=== PATIENT | female | born 1960 | race Caucasian/White ===

== ENCOUNTER 2020-03-29 09:02 | Outpatient (CLI) | payer BC, SELFPAY ==
--- NOTE | ~2020-03-29 | XR_ITS ---
XR foot RT 2V DATE: 03/29/2020 09:40 INDICATION: Right foot pain TECHNIQUE: AP and standing lateral views COMPARISON: None FINDINGS: Plantar calcaneal enthesopathy. No associated erosive change or periostitis is evident. There is hallux valgus and bunion deformity. There is osteoarthritis at the first metatarsophalangeal joint. No erosive changes are noted. No fracture, dislocation, periosteal reaction or bone destructi on. IMPRESSION: Hallux valgus and bunion deformity Osteoarthritis at first metatarsophalangeal joint Plantar calcaneal enthesopathy Reviewed, dictated and finalized at location A.
== END 2020-03-29 09:03 | disposition home or self-care (01) ==
PROVIDERS: PCP Internal Medicine; Visit Provider Internal Medicine
DX: M79.671 Pain in right foot (principal); M20.11 Hallux valgus (acquired), right foot; M21.611 Bunion of right foot; M19.071 Primary osteoarthritis, right ankle and foot; M77.31 Calcaneal spur, right foot
CPT/HCPCS: 73620

== ENCOUNTER 2020-09-29 08:32 | Outpatient (CLI) | payer BC, SELFPAY ==
--- NOTE | ~2020-09-29 | MM_ITS ---
EXAMINATION: MM screening [facility] BI w lindsay HISTORY: Screening TECHNIQUE: Craniocaudal and mediolateral oblique 3-D tomosynthesis images were obtained and synthetic 2-D images were generated. CAD analysis was submitted and interpreted. COMPARISON: Comparison to multiple prior studies sequentially, with oldest reviewed study dated 11/2011. BREAST PARENCHYMAL COMPOSITION: There are scattered areas of fibroglandular density. FINDINGS: There is no evidence of suspicious mass, calcification, or architectural distortion to sugg est malignancy in either breast. There has been no suspicious interval change. IMPRESSION: 1. No mammographic evidence of malignancy. 2. Recommend routine screening mammography in one year. BI-RADS Category 1: Negative Reviewed, dictated and finalized at location A. REMOVER
== END 2020-09-29 08:33 | disposition home or self-care (01) ==
LOC: ANHIMG 08:36
PROVIDERS: PCP Internal Medicine; Visit Provider Internal Medicine
DX: Z12.31 Encounter for screening mammogram for malignant neoplasm of breast (principal)
CPT/HCPCS: 77063; 77067

== ENCOUNTER 2020-11-24 20:11 | Emergency (ER) | payer BC, SELFPAY ==
--- NOTE | ~2020-11-24 | XR_ITS ---
XR chest 1V portable DATE: 11/24/2020 20:55 INDICATION: Fever. Low oxygenation. Covid. TECHNIQUE: Portable AP chest on 11/24/2020 at 2059 hours COMPARISON: 03/17/2011 PA and lateral chest FINDINGS: Normal heart size. No hilar or mediastinal enlargement. There is mild patchy infiltrate and/or atelectasis in the lower lung zones, right greater than left. No pleural effusion or pulmonary vascular congestion or pneumothorax. IMPRESSION: Mild patchy infiltrate and/or atelectasis in the lower lung zones, right greater than lef t Reviewed, dictated and finalized at location A. ASOUND TECHNICIAN IMPRESSION: Mild patchy infiltrate and/or atelectasis in the lower lung zones, right greater than left
[2020-11-24 20:15] VITALS: BP 141/77; PULSE 92; RESP 20; TEMP 36.2; O2SAT 96
[2020-11-24 20:47] VITALS: RESP 14; O2SAT 95
--- NOTE | 2020-11-24 20:47 | PC.NURSE ---
Patient ambulated with pulse oximeter. O2 ranged from 94%-96% while ambulating.
--- NOTE | 2020-11-24 21:04 | ED.GENADULT ---
HPI - General Adult General Chief complaint: Unspecified Stated complaint: low o2 - COVID+ Time Seen by Provider: 11/24/20 20:23 Source: patient Mode of arrival: ambulatory Limitations: no limitations History of Present Illness HPI narrative: Patient presents with chief complaint of fevers, cough and feelings of shortness of breath after being diagnosed with Covid on ??. Patient states that her daughter gave her a pulse ox for her finger and she woke up and took it in the middle of the night and sat 89 so she felt that her oxygen levels were too low. Patient does not have any pain with inspiration, chest pain patient states that her fever was 100.3 degrees Fahrenheit so she has been taking Tylenol for it. Patient denies having asthma or COPD. Patient states she has been able to eat and drink normally. Related Data Home Medications Medication Instructions Recorded Confirmed estradiol 1 mg tablet 1 mg PO DAILY 10/05/19 09/25/20 omega-3 fatty acids 1,000 mg 2,000 mg PO BID cap 04/09/20 09/25/20 capsule pantoprazole 40 mg tablet,delayed 40 mg PO DAILY tablet 06/28/20 09/25/20 release Allergies Allergy/AdvReac Type Severity Reaction Status Date / Time venom-wasp Allergy Intermediate Swelling Verified 09/24/20 13:03 of Lip/Tongue/Throat Review of Systems Review of Systems: Narrative: CONSTITUTIONAL: Reports denies fever or sweats. EYES: Denies visual changes, redness, or discharge. ENT: Denies rhinorrhea, congestion, sore throat, or otalgia. CARDIOVASCULAR: Denies chest pain, palpitations, or edema. RESPIRATORY: Reports occasional cough and mild dyspnea. GASTROINTESTINAL: Denies abdominal pain, nausea, vomiting, or diarrhea. GENITOURINARY: Denies dysuria or hematuria. SKIN: Denies rash or itching. MUSCULOSKELETAL: Denies back pain, joint pain, or myalgia. NEUROLOGIC: Denies headache, numbness, dizziness, or weakness. PSYCHIATRIC: Denies anxiety or depression. 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 Right foot pain UTI (urinary tract infection) Vitamin D deficiency Wasp sting Family History Family History Mother Hypertension Family history of elevated blood lipids Patient's mother is in good health Family history of malignant melanoma Family history of osteoporosis Family history of chronic obstructive pulmonary disease Father Family history of heart disease in male family member before age 55 Family history of cardiovascular disease Other Acute myocardial infarction Social History Social History Smoking status: Never smoker Second hand tobacco smoke exposure: No Alcohol intake: current Exam Narrative: Exam Narrative: GENERAL: Well-appearing, well-nourished, and in no acute distress. HEAD: Normocephalic, atraumatic. EYES: PERRLA and EOMI. NECK: Supple. No adenopathy or masses. CHEST: Clear to auscultation. No respiratory distress. No wheezes rales or rhonchi. Patient is speaking fluently without any signs of hypoxia, tachypnea or distress. HEART: Regular rate and rhythm. EXTREMITIES: Normal range of motion. No edema. SKIN: Warm, dry, no rash. NEURO: No focal deficits. Alert and oriented x3. PSYCH: Normal mood and affect. Course Vital Signs Vital signs: Vital Signs Temperature 97.2 F L 11/24/20 20:15 Pulse Rate 92 11/24/20 20:15 Respiratory Rate 20 11/24/20 20:15 Blood Press
[2020-11-24 21:31] VITALS: BP 136/78; PULSE 82; RESP 16; TEMP 36.6; O2SAT 96
== END 2020-11-24 21:34 | disposition home or self-care (01) ==
PROVIDERS: Emergency Provider Emergency Medicine; PCP Internal Medicine
DX: U07.1 COVID-19 (principal); K21.9 Gastro-esophageal reflux disease without esophagitis; E78.5 Hyperlipidemia, unspecified; Z87.440 Personal history of urinary (tract) infections; E55.9 Vitamin D deficiency, unspecified; R91.8 Other nonspecific abnormal finding of lung field
CPT/HCPCS: 71045; 99283

== ENCOUNTER 2020-11-26 15:18 | Outpatient (CLI) | payer BC, SELFPAY ==
--- NOTE | ~2020-11-26 | CT_ITS ---
EXAMINATION: CTA chest PE protocol DATE: 11/26/2020 15:55 INDICATION: Dyspnea. TECHNIQUE: Computed tomography angiography (CTA) of the chest was performed with 100 mL Omnipaque-350 intravenous contrast timed to evaluate the pulmonary arteries. Coronal maximum intensity projection 3D-reconstructions were created by the technologist. Automated exposure control and iterative reconst ruction technique were employed. The dose-length product was 225.72 mGy-cm. COMPARISON: CT abdomen and pelvis 10/13/2019 FINDINGS: There are patchy airspace and groundglass opacities involving all lobes with a peripheral p redominance, worst in the lower lobes. No pleural effusion. The heart size is normal. No pericardial effusion. There is a small sliding hiatal hernia. There is no pulmonary embolus. There is mild bilate ral hilar lymphadenopathy. There is mild thoracic spondylosis. There is mild chronic anterior wedging of multiple lower thoracic vertebral bodies. IMPRESSION: 1. No pulmonary embolus. 2. Diffuse lung disease, consistent with COVID-19 pneumonia. 3. Small sliding hiatal hernia. 4. Mild bilateral hilar lymphadenopathy, likely reactive. Reviewed, dictated and finalized at location A. GENCY DEPARTMENT AIDE
[2020-11-26 15:49] LABS: Estimated Glomerular Filt Rate > 60
== END 2020-11-26 15:19 | disposition home or self-care (01) ==
PROVIDERS: PCP Internal Medicine; Visit Provider Internal Medicine
DX: R05 Cough (principal); R06.09 Other forms of dyspnea; R09.02 Hypoxemia; R50.81 Fever presenting with conditions classified elsewhere
CPT/HCPCS: 71275; Q9967

== ENCOUNTER 2020-11-30 09:19 | Outpatient (CLI) | payer BC, SELFPAY ==
--- NOTE | ~2020-11-30 | XR_ITS ---
XR chest 2V DATE: 11/30/2020 09:33 INDICATION: Cough, fever, dyspnea on exertion. Hypoxemia. TECHNIQUE: PA and lateral views COMPARISON: November 26, 2020 CT pulmonary scan 11/24/2020 portable AP chest FINDINGS: Stable patchy infiltrates predominating in the lower lung zones, not appreciably changed si nce 11/24/2011. Normal heart size. No hilar or mediastinal enlargement. No pleural effusion or pneumothorax. IMPRESSION: Relatively stable patchy bilateral pulmonary infiltrates since 11/24/2020 Reviewed, dictated and finalized at location A. UNTANT HELPER
== END 2020-11-30 09:20 | disposition home or self-care (01) ==
LOC: ANHIMG 09:24
PROVIDERS: PCP Internal Medicine; Visit Provider Internal Medicine
DX: R05 Cough (principal); R06.00 Dyspnea, unspecified; R09.02 Hypoxemia; R50.81 Fever presenting with conditions classified elsewhere; R91.8 Other nonspecific abnormal finding of lung field
CPT/HCPCS: 71046

== ENCOUNTER → 2020-12-11 15:24 | Outpatient (CLI) | payer BC, SELFPAY ==
--- NOTE | ~2020-12-11 | XR_ITS ---
EXAMINATION: XR hand RT min 3V DATE: 12/11/2020 15:34 INDICATION: Painful osteoarthritis at the third metacarpophalangeal joint. TECHNIQUE: Posteroanterior, oblique and lateral views of the right hand were obtained. COMPARISON: None. FINDINGS: Slight palmar subluxation at the second and third metacarpophalangeal joints. Alignment is otherwise normal. No fracture. Osteoarthritis characterized by nonuniform joint space narrowing and associated marginal osteophytes, moderate severity at the third metacarpophalangeal joint, mild to moderate at t he second metacarpophalangeal joint and mild at the first metacarpophalangeal and multiple predominan tly distal interphalangeal joints. Small lucencies within sclerotic margins at the heads of the secon d and third metacarpals and favor degenerative subchondral cyst over chronic erosions. Small loose os teochondral body at the right wrist joint along the ulnar margin of the distal radial articular surfa ce. Soft tissues are unremarkable. IMPRESSION: 1. Mild to moderate polyarticular osteoarthritis most prominent at the second and third metacarpophal angeal joints. There is a typical distribution can be seen in the setting of calcium pyrophosphate de position (CPPD) disease. Reviewed, dictated and finalized at location A. ING SUPERVISOR IMPRESSION: 1. Mild to moderate polyarticular osteoarthritis most prominent at the second a nd third metacarpophalangeal joints. There is a typical distribution can be see n in the setting of calcium pyrophosphate deposition (CPPD) disease.
== END ==
PROVIDERS: PCP Internal Medicine; Visit Provider Plastic Surgery
DX: M19.041 Primary osteoarthritis, right hand (principal)
CPT/HCPCS: 73130

== ENCOUNTER 2021-08-18 11:45 | Emergency (ER) | payer BC, SELFPAY ==
--- NOTE | 2021-08-18 11:54 | ED.SKABFB ---
HPI - Skin/Abscess/Foreign Bdy General Chief complaint: Skin/Abscess/Foreign Body Stated complaint: insect bite Time Seen by Provider: 08/18/21 12:00 Source: patient and RN notes reviewed Mode of arrival: ambulatory Limitations: no limitations History of Present Illness HPI narrative: 61-year-old female presents with concern for pain that started in the left shoulder, and is now radiating to the left mid to upper back area. Reports last night she had an episode of chest heaviness with shortness of breath. She denies any injury or trauma. Reports symptoms started with her shoulder after she lifted her daughter's heavy wheelchair. She reports an area on her upper back that is painful, itchy. Reports an ice pack temporary relieve the symptoms. She denies any current shortness of breath, chest pain. She is not had a shingles vaccine. MD complaint: insect bite/sting Related Data Home Medications Medication Instructions Recorded Confirmed estradiol 1 mg tablet 1 mg PO DAILY 10/05/19 08/18/21 folic acid 800 mcg tablet 0.8 mg PO DAILY 04/03/21 08/18/21 omega-3 fatty acids 1,000 mg 1,000 mg PO BID cap 04/03/21 08/18/21 capsule paroxetine HCl 10 mg PO DAILY 08/18/21 08/18/21 Allergies Allergy/AdvReac Type Severity Reaction Status Date / Time venom-wasp Allergy Intermediate Swelling Verified 08/18/21 12:25 of Lip/Tongue/Throat Review of Systems Review of Systems: CONSTITUTIONAL: Denies malaise, chills, sweats, or fever. CARDIOVASCULAR: Denies chest pain, palpitations, or edema. Reports an episode of chest heaviness last night RESPIRATORY: Denies cough or dyspnea. GASTROINTESTINAL: Denies abdominal pain, nausea SKIN: Denies rash. Reports left-sided upper back itching. MUSCULOSKELETAL: Reports left-sided upper back pain NEUROLOGIC: Denies numbness, weakness All systems reviewed & are unremarkable except as noted in HPI and below PMFSH Past Medical History Medical History (Updated 08/18/21 @ 12:34 by Hermelinda Santos NP) Abdominal pain BMI 24.0-24.9, adult BMI 25.0-25.9,adult Change in bowel habits Cough WRIGHT (dyspnea on exertion) Elevated fasting glucose Elevated homocysteine Encounter for preventive health examination Encounter for routine adult health examination without abnormal findings Encounter for screening mammogram for malignant neoplasm of breast Envenomation Fever Gastroenteritis GERD (gastroesophageal reflux disease) Hearing loss Hormone replacement therapy (HRT) Hyperlipidemia Loose stools 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 Personal history of COVID-19 Right foot pain Trigger finger of right hand UTI (urinary tract infection) Vitamin D deficiency Wasp sting Family History Family History Mother Hypertension Family history of elevated blood lipids Patient's mother is in good health Family history of malignant melanoma Family history of osteoporosis Family history of chronic obstructive pulmonary disease Father Family history of heart disease in male family member before age 55 Family history of cardiovascular disease Other Acute myocardial infarction Social History Social History Smoking status: Never smoker Second hand tobacco smoke exposure: No Alcohol intake: current Comments At time of signature, agree with nursing past medical, surgical, social and family history. There is no relevant family history pertinent to the presenting complaint Exam Narrative: GENERAL: Well-appearing, well-nourished, and in no acute distress. HEAD: Normocephalic, atraumatic. EYES: PERRLA, sclera clear ENT: Mucous membranes moist. NECK: Supple. CHEST: No respiratory distress. Clear to auscultation. No bony deformities, no asymmetry. Speaks in full sentences. HEART: Regular rate and rhythm. No murmur heard. Normal peripheral pulses. EXTREMITIES: Grossly normal range of motion. No
[2021-08-18 11:55] VITALS: BP 160/74; PULSE 88; RESP 16; TEMP 37; O2SAT 99
--- NOTE | 2021-08-18 12:32 | ECG_ITS ---
Measurements Intervals [place] Rate: 76 P: 44 MD: 135 QRS: 6 QRSD: 114 T: 10 QT: 389 QTc: 438 Interpretive Statements SINUS RHYTHM INCOMPLETE RIGHT BUNDLE BRANCH BLOCK BORDERLINE T WAVE ABNORMALITY- INFERIOR LEADS BASELINE ARTIFACT- I, II, AVR BORDERLINE ECG Electronically Signed On 08-18-2021 16:18:21 CDT by Ted Mak D.O.
== END 2021-08-18 12:40 | disposition home or self-care (01) ==
PROVIDERS: Emergency Provider Nurse Practitioner; PCP Internal Medicine
DX: M54.6 Pain in thoracic spine (principal); K21.9 Gastro-esophageal reflux disease without esophagitis; E78.5 Hyperlipidemia, unspecified; Z86.16 Personal history of COVID-19; E55.9 Vitamin D deficiency, unspecified
CPT/HCPCS: 93005; 99213; G0463

== ENCOUNTER 2021-11-18 09:15 | Outpatient (CLI) | payer BC, SELFPAY ==
--- NOTE | ~2021-11-18 | MM_ITS ---
EXAMINATION: MM screening [facility] BI w lindsay HISTORY: Screening mammogram TECHNIQUE: Craniocaudal and mediolateral oblique 3-D tomosynthesis images were obtained and synthetic 2-D images were generated. CAD analysis was submitted and interpreted. COMPARISON: 09/29/2020, 10/14/2018, 10/17/2016 BREAST PARENCHYMAL COMPOSITION: There are scattered areas of fibroglandular density. FINDINGS: There is no evidence of suspicious mass, calcification, or architectural distortion to sugg est malignancy in either breast. There has been no suspicious interval change. IMPRESSION: 1. No mammographic evidence of malignancy. 2. Recommend routine screening mammography in one year. BI-RADS Category 1: Negative Reviewed, dictated and finalized at location A. INSPECTOR
== END 2021-11-18 09:16 | disposition home or self-care (01) ==
LOC: ANHIMG 09:17
PROVIDERS: PCP Internal Medicine; Visit Provider Internal Medicine
DX: Z12.31 Encounter for screening mammogram for malignant neoplasm of breast (principal)
CPT/HCPCS: 77063; 77067

== ENCOUNTER 2021-12-23 11:37 | Outpatient (CLI) | payer BC, SELFPAY ==
--- NOTE | ~2021-12-23 | CT_ITS ---
EXAMINATION: CT brain wo/w con DATE: 12/23/2021 12:46 INDICATION: Dizziness and giddiness. TECHNIQUE: Computed tomography (CT) of the head was performed without and with 100 mL Omnipaque 350 i ntravenous contrast. The mA was adjusted according to patient size. Iterative reconstruction techniqu e was employed. The dose-length product was 1210.67 mGy-cm. COMPARISON: Head CT 01/24/2008 FINDINGS: There is no intracranial hemorrhage, acute infarction, or abnormal intracranial mass lesion . The ventricles are normal in size. The paranasal sinuses are clear. The orbits are normal. The mast oid air cells are normal. IMPRESSION: 1. Normal brain. Reviewed, dictated and finalized at location A. ARATOR IMPRESSION: 1. Normal brain.
[2021-12-23 12:01] LABS: Basophils Absolute Auto 0.1 K/mm3 (0.0-0.1); Eosinophils Absolute Auto 0.1 K/mm3 (0-0.3); Hematocrit 40.5 % (37.0-47.0); Immature Granulocyte Absolute 0.03 K/mm3 (0.00-0.031); Immature Granulocyte Percent A 0.4 % (0-0.5); Lymphocytes Absolute Auto 2.25 K/mm3 (0.9-3.2); Lymphocytes Percent Auto 30.7 % (18.3-44.2); Mean Corpuscular HGB Conc 34.6 g/dl (32-36); Mean Corpuscular Hemoglobin 33.3 pg (26-34); Mean Corpuscular Volume 96.4 fl (80-100); Mean Platelet Volume 10.6 fl (7.4-10.4); Monocytes Absolute Auto 0.4 K/mm3 (0.1-0.6); Monocytes Percent Auto 4.9 % (2.6-8.5); Neutrophils Absolute Auto 4.6 K/mm3 (1.3-6.7); Platelet Count Result 215 k/mm3 (150-375); Red Cell Distribution Width 11.9 % (11.5-14.5); White Blood Count 7.3 K/mm3 (4.5-10.0)
[2021-12-23 12:16] LABS: Anion Gap 8 mmol/L (8-16); Blood Urea Nitrogen 15 mg/dL (7-17); Calcium 9.3 mg/dL (8.4-10.2); Carbon Dioxide 26 mmol/L (22-30); Chloride 103 mmol/L (98-107); Estimated Glomerular Filt Rate > 60; Glucose 123 mg/dL (65-110); Potassium 4.2 mmol/L (3.4-5.0); Sodium 137 mmol/L (137-145)
== END 2021-12-23 11:38 | disposition home or self-care (01) ==
PROVIDERS: PCP Internal Medicine; Visit Provider Internal Medicine
DX: R42 Dizziness and giddiness (principal); Z79.899 Other long term (current) drug therapy
CPT/HCPCS: 36415; 70470; 80048; 85025; Q9967

== ENCOUNTER 2022-11-25 09:31 | Outpatient (CLI) | payer BC, SELFPAY ==
--- NOTE | ~2022-11-25 | MM_ITS ---
EXAMINATION: MM screening [facility] BI w lindsay HISTORY: Screening TECHNIQUE: Craniocaudal and mediolateral oblique 3-D tomosynthesis images were obtained and synthetic 2-D images were generated. CAD analysis was submitted and interpreted. COMPARISON: Comparison to multiple prior studies sequentially, with oldest reviewed study dated 09/25. BREAST PARENCHYMAL COMPOSITION: There are scattered areas of fibroglandular density. FINDINGS: There is no evidence of suspicious mass, calcification, or architectural distortion to sugg est malignancy in either breast. There has been no suspicious interval change. IMPRESSION: 1. No mammographic evidence of malignancy. 2. Recommend routine screening mammography in one year. BI-RADS Category 1: Negative Reviewed, dictated and finalized at location A. M SIGNALER
== END 2022-11-25 09:32 | disposition home or self-care (01) ==
PROVIDERS: PCP Internal Medicine; Visit Provider Physician Assistant
DX: Z12.31 Encounter for screening mammogram for malignant neoplasm of breast (principal)
CPT/HCPCS: 77063; 77067

== ENCOUNTER 2022-12-25 10:43 | Outpatient (CLI) | payer MEDICARE, BC, SELFPAY ==
--- NOTE | ~2022-12-25 | US_ITS ---
Abdominal Sonogram: Real-time sonographic imaging of the abdomen was performed. Clinical History: Abdominal pain Findings: The liver appears normal with no evidence of bile duct dilatation. There is a possible 2.5 cm probable hyperechoic mass near the gallbladder fossa. Main portal vein demonstrates normal direct ion of flow. The spleen is normal in size without evidence of focal lesion. The gallbladder is well distended, and appears normal with no evidence of gallstone or wall thickening. The common bile duct measures 3 mm. The visualized pancreas, aorta, and IVC are unremarkable. The right kidney measures 9.8 cm in length and the left kidney measures 11.4 cm. There is no hydronephrosis or renal calculus. Impression: Possible 2.5 cm hyperechoic hepatic mass near the gallbladder fossa, most suggestive of either jim ioma or focal fatty infiltration. Pre and postcontrast MR should be considered to further evaluate/co nfirm. Reviewed, dictated and finalized at [facility]. GER VALUATION Impression: Possible 2.5 cm hyperechoic hepatic mass near the gallbladder fossa, most sugge stive of either hemangioma or focal fatty infiltration. Pre and postcontrast MR should be considered to further evaluate/confirm.
== END 2022-12-25 10:44 | disposition home or self-care (01) ==
PROVIDERS: PCP Internal Medicine; Visit Provider Internal Medicine
DX: R10.9 Unspecified abdominal pain (principal); R93.5 Abnormal findings on diagnostic imaging of other abdominal regions, including retroperitoneum
CPT/HCPCS: 76700

== ENCOUNTER 2022-12-31 13:38 | Outpatient (CLI) | payer MEDICARE, SELFPAY ==
[2022-12-31 14:27] LABS: Appearance Urine Clear (Clear); Bacteria Urine None Seen /hpf; Bilirubin Urine Negative (Negative); Blood Urine Negative (Negative); Color Urine Yellow (Yellow); Glucose Urine UA Negative (Negative); Ketones Urine Negative (Negative); Leukocyte Esterase Ur 1+ LEU/UL (Negative); Need Manual Microscopic Reviewed; Nitrate Urine Negative (Negative); Non Pathogenic Casts 0-2; Protein Urine Negative (Negative); RBC Urine 0-2 /hpf (0-2); Specific Grav Ur 1.012 (1.001-1.035); Squamous Epithelial Cell Urine None seen /hpf (Few); Urobilinogen Urine 0.2 mg/dL (<2.0); WBC Urine 0-5 /hpf; pH Urine 6.5 (5.0-9.0)
[2022-12-31 14:29] LABS: Add Urine Microscopic? YES
== END 2022-12-31 13:39 | disposition home or self-care (01) ==
PROVIDERS: PCP Internal Medicine; Visit Provider Internal Medicine
DX: R39.9 Unspecified symptoms and signs involving the genitourinary system (principal)
CPT/HCPCS: 81001

== ENCOUNTER 2023-01-07 09:02 | Outpatient (CLI) | payer MEDICARE, SELFPAY ==
--- NOTE | ~2023-01-07 | MR_ITS ---
EXAMINATION: MR abdomen wo/w con DATE: 01/07/2023 09:54 INDICATION: 2.5 cm hyperechoic hepatic mass on prior ultrasound. TECHNIQUE: Magnetic resonance imaging (MRI) of the abdomen was performed without and with 15 mL Multi brad intravenous contrast. Sequences included coronal T2-weighted SS-FSE, coronal and axial FS 2D-F IESTA, axial STIR FSE, axial T2-weighted SS-FSE, axial T2-weighted FS SS-FSE, axial diffusion-weighte d SE, axial dual-echo T1-weighted FSPGR, and axial and coronal T1-weighted LAVA. Postcontrast axial T 1-weighted LAVA images were obtained in a time course. Postcontrast coronal T1-weighted LAVA images w ere obtained. COMPARISON: Ultrasound dated 12/25/[address] abdomen and pelvis dated 10/13/1990 FINDINGS: Heart size is normal. No pericardial or pleural effusion. Liver is normal with no correlate for the s mall region of increased echogenicity seen in the right hepatic lobe on prior. Gallbladder, spleen, p ancreas, bilateral adrenal glands and kidneys are normal. Visualized bowels are unremarkable. No path ologically enlarged abdominal lymphadenopathy. Normal bone marrow signal throughout. IMPRESSION: 1. Normal liver. No correlate for the hyperechoic lesion identified on prior ultrasound. Reviewed, dictated and finalized at location B. IMPRESSION: 1. Normal liver. No correlate for the hyperechoic lesion identified on prior ul trasound.
== END 2023-01-07 09:03 | disposition home or self-care (01) ==
PROVIDERS: PCP Internal Medicine; Visit Provider Internal Medicine
DX: R16.0 Hepatomegaly, not elsewhere classified (principal)
CPT/HCPCS: 74183; A9577

== ENCOUNTER 2023-04-13 14:46 | Outpatient (CLI) | payer MEDICARE, SELFPAY ==
--- NOTE | ~2023-04-13 | DEXA_ITS ---
Bone Density Report Name: CARMEN SMITH Age: 63 Sex: Female Ethnicity: White Date of : 1960 Indication: postmenopausal; screening for osteoporosis; Referring Provider: ALETA NEAL Study: Bone densitometry was performed. Exam Date: April 13, 2023 Accession number: [id number] Bone Density: Region BMD T-score Z-score Classification AP Spine(L1-L4) 1.224 1.6 3.4 Normal Femoral Neck (Left) 0.837 -0.1 1.4 Normal Total Hip (Left) 1.030 0.7 2.0 Normal Femoral Neck (Right) 0.836 -0.1 1.4 Normal Total Hip (Right) 1.072 1.1 2.3 Normal Total Hip Mean 1.051 0.9 2.2 Normal World Health Organization criteria for BMD impression classify patients as: Normal (T-score at or above -1.0), Osteopenia (T-score between -1.0 and -2.5), or Osteoporosis (T-score at or below -2.5). 10-year Fracture Risk: FRAX not reported because: All T-scores for Spine Total, Hip Total, Femoral Neck at or above -1.0 Clinical Information Provided by Patient: Has used the following medications: Calcium Patient maximum height was 63 Menopause Age: 53 Drinks caffeinated beverages Onset of menses at age 17 Number of children 3 Impression: The patient has normal bone mass. Discussion: BONE DENSITY IS ABOVE THE MINIMUM DESIRABLE LEVEL AT ALL SKELETAL SITES TESTED. This patient?s bone mineral density is above the minimum desirable level (T-score -1.0 or better) at all sites measured. The patient should follow a healthful lifestyle (good nutrition with adequate calcium and vitamin D, and appropriate weight-bearing exercise). Follow-Up: Consider repeating this study in 5 years or sooner if there is some new clinical indication. Reported by: ASHANTI on 04/13/2023 3:07:00 PM. Reviewed, dictated and finalized at location A. [facility]
== END 2023-04-13 14:47 | disposition home or self-care (01) ==
LOC: ANHIMG 14:49
PROVIDERS: PCP Internal Medicine; Visit Provider Internal Medicine
DX: Z78.0 Asymptomatic menopausal state (principal)
CPT/HCPCS: 77080

== ENCOUNTER 2023-08-18 14:51 | Outpatient (CLI) | payer MEDICARE, SELFPAY ==
--- NOTE | ~2023-08-18 | CT_ITS ---
EXAMINATION: CT abdomen pelvis w con DATE: 08/18/2023 15:28 INDICATION: Unspecified abdominal pain. Nausea. TECHNIQUE: Computed tomography (CT) of the abdomen and pelvis was performed with 100 mL Omnipaque 350 intravenous contrast. Automated exposure control and iterative reconstruction technique were employe d. The dose-length product was 306.90 mGy-cm. COMPARISON: CT abdomen and pelvis 10/13/2019 FINDINGS: The visualized portions of the lung bases demonstrate mild atelectasis. No pleural effusion . The heart size is normal. No pericardial effusion. There is a small sliding hiatal hernia. The live r, gallbladder, spleen, pancreas, adrenal glands, and kidneys are normal. There are no dilated loops of bowel. The appendix is normal. There are no pathologically enlarged lymph nodes. There is no free intraperitoneal fluid. There is moderate lumbar spondylosis. There is mild chronic anterior wedging o f multiple vertebral bodies. IMPRESSION: 1. Small sliding hiatal hernia. Reviewed, dictated and finalized at location E.
[2023-08-18 15:23] LABS: Estimated Glomerular Filt Rate > 60
== END 2023-08-18 14:52 | disposition home or self-care (01) ==
PROVIDERS: PCP Internal Medicine; Visit Provider Internal Medicine
DX: K44.9 Diaphragmatic hernia without obstruction or gangrene (principal)
CPT/HCPCS: 74177; Q9967

== ENCOUNTER 2023-12-28 17:10 | Outpatient (CLI) | payer MEDICARE, SELFPAY ==
--- NOTE | ~2023-12-28 | XR_ITS ---
EXAMINATION: XR chest 2V DATE: 12/28/2023 17:11 INDICATION: Unspecified cough TECHNIQUE: PA and lateral views of the chest are obtained. COMPARISON: 11/30/2020 FINDINGS: The lungs are free of acute opacities. No pleural effusion or pneumothorax. The cardiomedia stinal silhouette is normal. There is mild thoracic spondylosis. IMPRESSION: 1. No acute cardiopulmonary abnormality. Reviewed, dictated and finalized at location L. SPECIALIST
[2023-12-28 17:26] LABS: Basophils Percent Auto 0.5 % (0.2-1.2); Eosinophils Percent Auto 0.1 % (0-4.4); Hematocrit 38.2 % (37.0-47.0); Hemoglobin 12.8 g/dL (12.0-15.0); Immature Granulocyte Absolute 0.02 K/mm3 (0.00-0.031); Immature Granulocyte Percent A 0.3 % (0-0.5); Lymphocytes Absolute Auto 3.05 K/mm3 (0.9-3.2); Lymphocytes Percent Auto 41.8 % (18.3-44.2); Mean Corpuscular HGB Conc 33.5 g/dl (32-36); Mean Corpuscular Hemoglobin 32.2 pg (26-34); Mean Platelet Volume 10.1 fl (7.4-10.4); Monocytes Absolute Auto 0.6 K/mm3 (0.1-0.6); Monocytes Percent Auto 8.6 % (2.6-8.5); Neutrophils Absolute Auto 3.5 K/mm3 (1.3-6.7); Neutrophils Percent Auto 48.7 % (45.5-73.1); Platelet Count Result 191 k/mm3 (150-375); Red Blood Count 3.98 M/mm3 (4.2-5.4); Red Cell Distribution Width 11.9 % (11.5-14.5); White Blood Count 7.3 K/mm3 (4.5-10.0)
== END 2023-12-28 17:11 | disposition home or self-care (01) ==
PROVIDERS: PCP Internal Medicine; Visit Provider Internal Medicine
DX: E78.2 Mixed hyperlipidemia (principal); R05.9 Cough, unspecified
CPT/HCPCS: 36415; 71046; 85025

== ENCOUNTER 2024-12-21 13:22 | Outpatient (CLI) | payer MEDICARE, SELFPAY ==
--- NOTE | ~2024-12-21 | MM_ITS ---
EXAMINATION: MM screening nicolle BI w lindsay HISTORY: Screening mammogram TECHNIQUE: Craniocaudal and mediolateral oblique 3-D tomosynthesis images were obtained and synthetic 2-D images were generated. CAD analysis was submitted and interpreted. COMPARISON: 11/25/2022, 11/18/2021, 09/29/2020 BREAST PARENCHYMAL COMPOSITION:Not Dense. The breasts are almost entirely fatty FINDINGS: No suspicious mass, calcification, or architectural distortion are identified in either franki ast to suggest malignancy. There has been no suspicious interval change. IMPRESSION: No mammographic evidence of malignancy. Recommend routine screening mammography in one year. BI-RADS Category 1: Negative Reviewed, dictated and finalized at location . 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
--- OUTSIDE RECORDS SUMMARY | 2024-12-21 15:09 | XMS_ITS | Clinical Summary ---
Author Organization 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 Gender Identity Not on file Sexual Orientation Not on file Plan of Treatment Health Maintenance Due Date Last Done Comments DEXA Bone Density 1960 Hepatitis C Virus (HCV) Screening 1960 TdaP Immunization 1960 Colonoscopy 2003 Colorectal Cancer Screening 2003 Cologuard 01/05/2008 Immunochemical Fecal Occult Blood 01/05/2008 Mammogram 01/05/2008 Pneumococcal Immunization (5 0+ years) (1 of 1 - PCV) 01/05/2008 Zoster Immunization (1 of 2) 01/05/2008 Influenza Immunization (#1) 2024 SARS-COV-2 Immunization ( season) 2024 Respiratory Syncytial Virus (RSV) Immunization (Adult) (1 - 1-dose 75+ series) 2033 Hepatitis B Immunization Aged Out No longer eligible based on patient's age to complete this topic Meningococcal Immunization (ACWY) Aged Out No longer eligible based on patient's age to complete this topic Rotavirus Immunization Aged Out No lo nger eligible based on patient's age to complete this topic
--- OUTSIDE RECORDS SUMMARY | 2024-12-21 15:09 | XMS_ITS | Data Portability ---
Author Organization [facility] Address [address] [place] [address] Care Team Providers Care Exercise Instruct Name Role Phone EYAD CARBAJAL Registered Phlebotomist Part Time [phone] Assessment No assessment recorded. Plan of Treatment Reminders Order Date Submit Date Provider Last Modified By Organization Details Last Modified Time Details Appointments None recorded. Lab pap, IG + reflex HPV 2021 022 DBA_PATCH_2 [id number] [facility], [address], [place], [address], 3 03:37:09 bacterial vaginosis score, ASHLI+probe , vaginal fluid (OBS) 2021 022 DBA_PATCH_2 [id number] [facility], [address], [place], [address], 3 03:37:09 urinalysi s, dipstick 2021 022 [email or web address] 1 In-Office Order, Internal Use Only DO Not Attach Compendium DO Not Attach Compendium, Do Not Delete/merge, [id number] 2 11:34:19 pap, IG + HPV, cervical 2015 016 DBA_PATCH_2 [id number] [facility], [address], [place], [address], 6 04:33:05 urinalysi s, dipstick 2015 016 DBA_PATCH_2 [id number] In-Office Order, Internal Use Only DO Not Attach Compendium DO Not Attach Compendium, Do Not Delete/merge, [id number] 6 04:33:17 test, urine 2015 016 DBA_PATCH_2 [id number] In-Office Order, Internal Use Only DO Not Attach Compendium DO Not Attach Compendium, Do Not Delete/merge, [id number] 6 04:33:10 test, urine 2014 015 [email or web address] In-Office Order, Internal Use Only DO Not Attach Compendium DO Not Attach Compendium, Do Not Delete/merge, [id number] 5 12:26:45 urinalysi s, dipstick 2014 015 [email or web address] In-Office Order, Internal Use Only DO Not Attach Compendium DO Not Attach Compendium, Do Not Delete/merge, [id number] 5 12:26:46 culture, vaginal/r ectal, streptoco ccus group B 2014 015 G[address]NESIS GRECO, [address], [place], [address], 5 06:06:09 pap, IG + HPV, cervical 2014 015 G[address]NESIS GRECO, [address], [place], [address], 5 09:37:15 bacterial vaginosis + vaginitis panel, vaginal 2014 015 GÉNESIS GRECO, [address], [place], [address], 5 06:06:08 HSV (1+2) DNA, qual, PCR, unspecifi ed specimen 2014 015 GÉNESIS GRECO, [address], [place], [address], 5 06:06:09 Referral None recorded. Procedures None recorded. Surgeries None recorded. Imaging MAMMO, screening , bilateral 2021 022 [facility], [address], [place], [address], 2 10:25:52 MAMMO, screening , bilateral 2017 018 [facility], [address], [place], [address], 8 17:12:15 MAMMO, screening , bilateral - 3D view due to implants and size of breasts 2015 016 [facility], [address], [place], [address], 6 09:31:09 bone density 2015 016 [facility], [address], [place], [address], 6 17:39:47 mammogram , screening 2014 015 [facility], [address], [place], [address], 5 16:09:21 Medication Orders paroxetin e 10 mg tablet 2017 018 [facility]FACE [facility] [facility] #[id number], [address] [facility], [place], [place], [id number], 8 15:26:21 multivita min tablet 2017 018 [facility], [address], [place], [id number], 2 11:17:01 Calcium with Vitamin D 600 mg-10 mcg (400 unit) tablet [address] [facility], [address], [place], [id number], 8 15:26:23 paroxetin e 10 mg tablet 2015 016 [facility] #[id number], [address], [place], [id number], 8 15:16:36 Brisdelle 7.5 mg capsule 2015 016 [facility] #19204, [address], [place], [id number], 8 15:16:31 Brisdelle 7.5 mg capsule 2015 016 [facility] #58245, [address], [place], [id number], 8 15:16:31 calcium 600 mg (as carbonate )-vitamin D3 20 mcg (800 unit) tablet 2015 016 [facility]95, [address], [place], [id number], 2 11:18:47 multivita min tablet 2015 016 [facility]647, [address], [place], [id number], 2 11:17:01 Patient TargetsNo targets recorded. Patient Instructions Encounter Date Encounter Id Patient Instructions Last Modified By Organization Details Last Modified Time 09/05/2015 [id number] learning about breast cancer screening [facility] Not available 09/05/2015 12:26:46 10/01/2016 [id number] mammogram: about this test demetrius Not available 10/01/2016 13:46:44 10/12/2018 [id number] mammogram: about this test demetrius Not available 10/12/2018 15:26:16 mammogram screening patient instructions demetrius Not available 10/12/2018 15:26:16 12/25/2021 [id number] well visit, women 50 to 65: care instructions [email or web address] Not available 12/25/2021 11:31:15 learning about breast cancer screening [email or web address] Not available 12/25/2021 11:31:16 Reason for Referral None Reported. Results Created Date Observation Date Name Description Value Unit Range Abnormal Flag Note LastModifiedBy Organization Detail LastModifiedTime 10/01/20 16 10/01/2016 pregn madison test, urine HCG negati ve Not Available In-Office Order Internal Use Only DO Not Attach Compendium DO Not Attach Compendium, Do Not Delete/merge, [id number] 10/01/2016 12:46:09 10/01/20 16 10/01/2016 urina lysis , dipst ick Leukocytes Trace Not Available In-Offi ce Order Internal Use Only DO Not Attach Compendium DO Not Attach Compendium, Do Not Delete/merge, [id number] 10/01/2016 12:45:37 10/01/20 16 10/01/2016 urina lysis , dipst ick Nitrite negati ve Not Available In-Office Order Internal Use Only DO Not Attach Compendium DO Not Attach Compendium, Do Not Delete/merge, [id number] 10/01/2016 12:45:37 10/01/20 16 10/01/2016 urina lysis , dipst ick Urobilinogen .2 Not Available In-Of fice Order Internal Use Only DO Not Attach Compendium DO Not Attach Compendium, Do Not Delete/merge, [id number] 10/01/2016 12:45:37 10/01/20 16 10/01/2016 urina lysis , dipst ick Protein Negati ve Not Available In-Office Order Internal Use Only DO Not Attach Compendium DO Not Attach Compendium, Do Not Delete/merge, [id number] 10/01/2016 12:45:37 10/01/20 16 10/01/2016 urina lysis , dipst ick pH 6.0 Not Available In-Office Order Internal Use Only DO Not Attach Compendium DO Not Attach Compendium, Do Not Delete/merge, [id number] 10/01/2016 12:45:37 10/01/20 16 10/01/2016 urina lysis , dipst ick Blood Negati ve Not Available In-Office Order Internal Use Only DO Not Attach Compendium DO Not Attach Compendium, Do Not Delete/merge, [id number] 10/01/2016 12:45:37 10/01/20 16 10/01/2016 urina lysis , dipst ick Specific [place] 1.015 Not Available In-Off ice Order Internal Use Only DO Not Attach Compendium DO Not Attach Compendium, Do Not Delete/merge, [id number] 10/01/2016 12:45:37 10/01/20 16 10/01/2016 urina lysis , dipst ick Ketone Negati ve Not Available In-Office Order Internal Use Only DO Not Attach Compendium DO Not Attach Compendium, Do Not Delete/merge, [id number] 10/01/2016 12:45:37 10/01/20 16 10/01/2016 urina lysis , dipst ick Bilirubin Negati ve Not Available In-Office Order Internal Use Only DO Not Attach Compendium DO Not Attach Compendium, Do Not Delete/merge, [id number] 10/01/2016 12:45:37 10/01/20 16 10/01/2016 urina lysis , dipst ick Glucose Negati ve Not Available In-Office Order Internal Use Only DO Not Attach Compendium DO Not Attach Compendium, Do Not Delete/merge, [id number] 10/01/2016 12:45:37 09/05/20 15 09/05/2015 urina lysis , dipst ick Leukocytes Modera te Not Available In-Office Order Internal Use Only DO Not Attach Compendium DO Not Attach Compendium, Do Not Delete/merge, [id number] 09/05/2015 11:57:35 09/05/20 15 09/05/2015 urina lysis , dipst ick Nitrite negati ve Not Available In-Office Order Internal Use Only DO Not Attach Compendium DO Not Attach Compendium, Do Not Delete/merge, [id number] 09/05/2015 11:57:35 09/05/20 15 09/05/2015 urina lysis , dipst ick Urobilinogen .2 Not Available In-Of fice Order Internal Use Only DO Not Attach Compendium DO Not Attach Compendium, Do Not Delete/merge, 09/05/2015 11:57:35 09/05/20 15 09/05/2015 urina lysis , dipst ick Protein Negati ve Not Available In-Office Order Internal Use Only DO Not Attach Compendium DO Not Attach Compendium, Do Not Delete/merge, 09/05/2015 11:57:35 09/05/20 15 09/05/2015 urina lysis , dipst ick pH 6.0 Not Available In-Office Order Internal Use Only DO Not Attach Compendium DO Not Attach Compendium, Do Not Delete/merge, 09/05/2015 11:57:35 09/05/20 15 09/05/2015 urina lysis , dipst ick Blood Non-He molyze d: Trace Not Available In-Office Order Internal Use Only DO Not Attach Compendium DO Not Attach Compendium, Do Not Delete/merge, 09/05/2015 11:57:35 09/05/20 15 09/05/2015 urina lysis , dipst ick Specific [place] 1.010 Not Available In-Off ice Order Internal Use Only DO Not Attach Compendium DO Not Attach Compendium, Do Not Delete/merge, 09/05/2015 11:57:35 09/05/20 15 09/05/2015 urina lysis , dipst ick Ketone Negati ve Not Available In-Office Order Internal Use Only DO Not Attach Compendium DO Not Attach Compendium, Do Not Delete/merge, 09/05/2015 11:57:35 09/05/20 15 09/05/2015 urina lysis , dipst ick Bilirubin Negati ve Not Available In-Office Order Internal Use Only DO Not Attach Compendium DO Not Attach Compendium, Do Not Delete/merge, 09/05/2015 11:57:35 09/05/20 15 09/05/2015 urina lysis , dipst ick Glucose Negati ve Not Available In-Office Order Internal Use Only DO Not Attach Compendium DO Not Attach Compendium, Do Not Delete/merge, [id number] 09/05/2015 11:57:35 09/05/20 15 09/05/2015 pregn madison test, urine HCG negati ve Not Available In-Office Order Internal Use Only DO Not Attach Compendium DO Not Attach Compendium, Do Not Delete/merge, [id number] 09/05/2015 11:57:35 09/05/20 15 09/07/2015 bacte rial vagin osis + vagin itis panel , vagin al shira albicans, ASHLI NEGATI VE negati ve Not Available [facility] ([facility]) [address] [place], [address], 09/09/2015 06:06:08 09/05/20 15 09/07/2015 bacte rial vagin osis + vagin itis panel , vagin al shira glabrata, ASHLI NEGATI VE negati ve THIS TEST WAS DEVEL OPED AND ITS PERFO RMANC E MIRA CTERI STICS DETER MINED BY [facility]. IT HAS NOT BEEN CLEAR ED OR APPRO HARRIS BY THE FOOD AND DRUG ADMIN ISTRA TION. THE FDA HAS DETER MINED THAT SUCH CLEAR ANCE OR APPRO TRE IS NOT NECES BRITNI. Not Available [facility] ([facility]) [address] [facility], [place], [address], 09/09/2015 06:06:08 09/05/20 15 09/07/2015 bacte rial vagin osis + vagin itis panel , vagin al trich vag by ASHLI NEGATI VE negati ve Not Available [facility] ([facility]) [address] [place], [address], 09/09/2015 06:06:08 09/05/2009/08/2015 bacte rial vagin osis + vagin itis panel , vagin al chlamydia trachomatis, ASHLI NEGATI VE negati ve Not Available [facility] ([facility]) [address] [place], [address], 09/09/2015 06:06:08 09/05/20 15 09/08/2015 bacte rial vagin osis + vagin itis panel , vagin al neisseria gonorrhoeae, ASHLI NEGATI VE negati ve Not Available [facility] ([facility]) [address] [facility], [place], [address], 09/09/2015 06:06:08 09/05/20 15 09/09/2015 bacte rial vagin osis + vagin itis panel , vagin al atopobium vaginae LOW - 0 score Not Available [facility] ([facility]) [address] [facility], [place], [address], 09/09/2015 06:06:08 09/05/20 15 09/09/2015 bacte rial vagin osis + vagin itis panel , vagin al bvab 2 LOW - 0 score Not Available [facility] ([facility]) [address] [place], [address], 09/09/2015 06:06:08 09/05/20 15 09/09/2015 bacte rial vagin osis + vagin itis panel , vagin al megasphaera 1 LOW - 0 score CALCU LATE TOTAL SCORE BY BLAYEN Young THE 3 INDIV IDUAL BACTE RIAL VAGIN OSIS (BV) MARKE R SCORE S TOGET HER. TOTAL SCORE IS INTER PRETE D FOLLO WS: TOTAL SCORE 0-1: INDIC ATES THE ABSEN CE OF BV. TOTAL SCORE 2: INDET ERMIN ATE FOR BV. ADDIT IONAL CLINI GONZALO DATA SHOUL D BE EVALU ATED TO ESTAB KEDAR A DIAGN OSIS. TOTAL SCORE 3-6: INDIC ATES THE PRESE NCE OF BV. THIS TEST WAS DEVEL OPED AND ITS PERFO RMANC E MIRA CTERI STICS DETER MINED BY [facility]. IT HAS NOT BEEN CLEAR ED OR APPRO HARRIS BY THE FOOD AND DRUG ADMIN ISTRA TION. THE FDA HAS DETER MINED THAT SUCH CLEAR ANCE OR APPRO TRE IS NOT NECES BRITNI. Not Available [facility] ([facility]) [address] [facility], [place], [address], 09/09/2015 06:06:08 09/05/20 15 09/07/2015 HSV (1+2) DNA, qual, PCR, unspe cifie d speci men hsv 1 ASHLI NEGATI VE negati ve Not Available [facility] ([facility]) [address] [facility], [place], [address], 09/09/2015 06:06:09 09/05/20 15 09/07/2015 HSV (1+2) DNA, qual, PCR, unspe cifie d speci men hsv 2 ASHLI NEGATI VE negati ve Not Available [facility] ([facility]) [address] [facility], [place], [address], 09/09/2015 06:06:09 09/05/20 15 09/07/2015 cultu re, vagin al/re ctal, strep tococ cus group B strep gp B ASHLI NEGATI VE negati ve PENIC ILLIN G, AMPIC ILLIN , OR CEFAZ IVETTE ARE INDIC ATED FOR INTRA PARTU M PROPH YLAXI S OF PERIN ATAL GROUP B STREP (GBS) COLON IZATI ON. REFLE X SUSCE PTIBI LITY TESTI NG SHOUL D BE PERFO RMED PRIOR TO USE OF CLIND AMYCI N ONLY ON GBS ISOLA MAIRA FROM PENIC ILLIN -HALEY RGIC WOMEN WHO ARE CONSI DERED A HIGH RISK FOR ANAPH YLAXI S. TREAT MENT WITH VANCO MYCIN WITHO UT ADDIT IONAL TESTI NG IS WARRA NTED IF RESIS TANCE TO CLIND AMYCI N IS NOTED . (CDC GUIDE LINES , MMWR, 2009) Not Available [facility] ([facility]) [address] [facility], [place], [address], 09/09/2015 06:06:09 09/05/20 15 09/07/2015 pap, IG + HPV, cervi gonzalo HPV aptima NEGATI VE negati ve THIS TEST DETEC TS FOURT EEN HIGH- RISK HPV TYPES (16/1 8/31/ 33/35 /39/4 5/ 51/52 /56/5 8/59/ 66/68 ) WITHO UT DIFFE RENTI ATION . Not Available [facility] ([facility]) [address] [facility], [place], [address], 09/10/2015 09:37:15 09/05/20 15 09/10/2015 pap, IG + HPV, cervi gonzalo diagnosis: COMMEN T NEGAT STACI FOR INTRA EPITH ELIAL LESIO N AND MALIG JEANINE . CELLU LAR ELLER ES ASSOC IATED WITH INFLA MMATI ON ARE PRESE NT. Not Available [facility] ([facility]) [address] [facility], [place], [address], 09/10/2015 09:37:15 09/05/2009/10/2015 pap, IG + HPV, cervi gonzalo specimen adequacy: COMMEN T SATIS FACTO RY FOR EVALU ATION . ENDOC ERVIC AL AND/O R SQUAM OUS METAP LASTI C CELLS (ENDO CERVI GONZALO COMPO NENT) ARE PRESE NT. Not Available [facility] ([facility]) [address] [facility], [place], [address], 09/10/2015 09:37:15 09/05/20 15 09/10/2015 pap, IG + HPV, cervi gonzalo performed by: MELVIN GALICIA, CYTOT ECHNO LOGIS T (ASCP ) Not Available [facility] ([facility]) [address] [facility], [place], [address], 09/10/2015 09:37:15 09/05/20 15 09/10/2015 pap, IG + HPV, cervi gonzalo QC reviewed by: MIAN ROMERO Y CYTOT ECHNO LOGIS T (ASCP ) Not Available [facility] ([facility]) [address] [place], [address], 09/10/2015 09:37:15 09/05/20 15 09/10/2015 pap, IG + HPV, cervi gonzalo . . Not Available [facility] ([facility]) [address] [place], [address], 09/10/2015 09:37:15 09/05/20 15 09/10/2015 pap, IG + HPV, cervi gonzalo note: COMMOWEN T THE PAP SMEAR IS A SCREE ANGLE TEST DESIG CHRIS TO AID IN THE DETEC TION OF BRIT LIGNA NT AND MALIG NANT CONDI TIONS OF THE UTERI NE CERVI X. IT IS NOT A DIAGN OSTIC PROCE DURE AND SHOUL D NOT BE USED THE SOLE MEANS OF DETEC TING CERVI GONZALO CANCE R. BOTH FALSE -POSI TIVE AND FALSE -NEGA TIVE REPOR TS DO OCCUR . Not Available [facility] ([facility]) [address] [place], [address], 09/10/2015 09:37:15 09/05/20 15 09/10/2015 pap, IG + HPV, cervi gonzalo test methodology: MELVIN T THIS LIQUI D BASED THINP REP(R ) PAP TEST WAS SCREE CHRIS WITH THE USE OF AN IMAGE GUIDE D SYSTE M. Not Available [facility] ([facility]) [address] [place], [address], 09/10/2015 09:37:15 12/26/19 22 12/26/2021 IGP,A PTIMA HPV,A GE GDLN age gdln acog testing 30-65 Not Available [facility] ([facility]) [address] [place], [address], 12/30/2021 11:36:49 12/26/19 22 12/27/2021 IGP,A PTIMA HPV,A GE GDLN HPV aptima Negati ve negati ve This nucle ic acid ampli ficat ion test detec ts fourt een high- risk HPV types (16,1 8,31, 33,35 ,39,4 5,51, 52,56 ,58,5 9,66, 68) witho ut diffe renti ation . Not Available [facility] ([facility]) [address] [place], [address], 12/30/2021 11:36:49 12/26/19 22 12/30/2021 IGP,A PTIMA HPV,A GE GDLN diagnosis: Melvin SMALL FOR INTRA EPITH ELIAL LESCANDIDA N OR MARJORIE SOLORZANO . Not Available [facility] ([facility]) [address] [place], [address], 12/30/2021 11:36:49 12/26/19 22 12/30/2021 IGP,A PTIMA HPV,A GE GDLN specimen adequacy: Melvin watson Satis facto ry for evalu ation . Endoc ervic al and/o r squam ous metap lasti c cells (endo cervi gonzalo compo nent) are prese nt. Not Available [facility] ([facility]) [address] [place], [address], 12/30/2021 11:36:49 12/26/19 22 12/30/2021 IGP,A PTIMA HPV,A GE GDLN clinician provided ICD10: Melvin watson Z01.4 19 Not Available [facility] ([facility]) [address] [place], [address], 12/30/2021 11:36:49 12/26/19 22 12/30/2021 IGP,A PTIMA HPV,A GE GDLN performed by: Melvin Blair , Cytot eloy watson (ASCP ) Not Available [facility] ([facility]) [address] [place], [address], 12/30/2021 11:36:49 12/26/19 22 12/30/2021 IGP,A PTIMA HPV,A GE GDLN . . Not Available [facility] ([facility]) [address] [place], [address], 12/30/2021 11:36:49 12/26/19 22 12/30/2021 IGP,A PTIMA HPV,A GE GDLN note: Commen t The Pap smear is a scree angle test desig chris to aid in the detec tion of brit ligna nt and malig nant condi tions of the uteri ne cervi x. It is not a diagn ostic proce dure and shoul d not be used as the sole means of detec ting cervi gonzalo cance r. Both false -posi tive and false -nega tive repor ts do occur . Not Available [facility] ([facility]) [address] [place], [address], 12/30/2021 11:36:49 12/26/19 22 12/30/2021 IGP,A PTIMA HPV,A GE GDLN test methodology: Commowen t This liqui d based ThinP rep(R ) pap test was scree chris with the use of an image guide iraj moyer. Not Available [facility] ([facility]) [address] [place], [address], 12/30/2021 11:36:49 12/26/19 22 12/29/2021 NUSWA B VG+, HSV atopobium vaginae Low - 0 score Not Available [facility] ([facility]) [address] [place], [address], 12/31/2021 06:13:36 12/26/19 22 12/29/2021 NUSWA B VG+, HSV bvab 2 Low - 0 score Not Available [facility] ([facility]) [address] [place], [address], 12/31/2021 06:13:36 12/26/19 22 12/29/2021 NUSWA B VG+, HSV megasphaera 1 Low - 0 score Calcu late total score by blayne young the 3 indiv idual bacte rial vagin osis (BV) marke r score s toget her. Total score is inter prete d as follo ws: Total score 0-1: Indic ates the absen ce of BV. Total score 2: Indet ermin ate for BV. Addit ional clini gonzalo data shoul d be evalu ated to estab kedar a diagn osis. Total score 3-6: Indic ates the prese nce of BV. This test was devel rhiannoned and its perfo rmanc e mira cteri stics deter mined by [facility]. It has not been clear ed or appro harris by the Food and Drug Admin istra tion. Not Available [facility] ([facility]) [address] [place], [address], 12/31/2021 06:13:36 12/26/19 22 12/29/2021 NUSWA B VG+, HSV shira albicans, ASHLI Negati ve negati ve Not Available [facility] ([facility]) [address] [place], [address], 12/31/2021 06:13:36 12/26/19 22 12/29/2021 NUSWA B VG+, HSV shira glabrata, ASHLI Negati ve negati ve Not Available [facility] ([facility]) [address] [place], [address], 12/31/2021 06:13:36 12/26/19 22 12/31/2021 NUSWA B VG+, HSV trich vag by ASHLI Negati ve negati ve Not Available [facility] ([facility]) [address] [place], [address], 12/31/2021 06:13:36 12/26/19 22 12/31/2021 NUSWA B VG+, HSV chlamydia trachomatis, ASHLI Negati ve negati ve Not Available [facility] ([facility]) [address] [place], [address], 12/31/2021 06:13:36 12/26/19 22 12/31/2021 NUSWA B VG+, HSV neisseria gonorrhoeae, ASHLI Negati ve negati ve Not Available [facility] ([facility]) [address] [place], [address], 12/31/2021 06:13:36 12/26/19 22 12/31/2021 NUSWA B VG+, HSV hsv 1 ASHLI Negati ve negati ve Not Available [facility] ([facility]) [address] [facility], [place], [address], 12/31/2021 06:13:36 12/26/19 22 12/31/2021 NUSWA B VG+, HSV hsv 2 ASHLI Negati ve negati ve Not Available [facility] ([facility]) [address], [place], [address], 12/31/2021 06:13:36 12/26/19 22 12/25/2021 urina lysis , dipst ick Leukocytes Negati ve Not Available In-Office Order Internal Use Only DO Not Attach Compendium DO Not Attach Compendium, Do Not Delete/merge, 12/25/2021 11:04:44 12/26/19 22 12/25/2021 urina lysis , dipst ick Nitrite negati ve Not Available In-Office Order Internal Use Only DO Not Attach Compendium DO Not Attach Compendium, Do Not Delete/merge, 12/25/2021 11:04:44 12/26/19 22 12/25/2021 urina lysis , dipst ick Urobilinogen .2 Not Available In-Of fice Order Internal Use Only DO Not Attach Compendium DO Not Attach Compendium, Do Not Delete/merge, 12/25/2021 11:04:44 12/26/19 22 12/25/2021 urina lysis , dipst ick Protein Negati ve Not Available In-Office Order Internal Use Only DO Not Attach Compendium DO Not Attach Compendium, Do Not Delete/merge, 12/25/2021 11:04:44 12/26/19 22 12/25/2021 urina lysis , dipst ick pH 6.5 Not Available In-Office Order Internal Use Only DO Not Attach Compendium DO Not Attach Compendium, Do Not Delete/merge, 12/25/2021 11:04:44 12/26/19 22 12/25/2021 urina lysis , dipst ick Blood Negati ve Not Available In-Office Order Internal Use Only DO Not Attach Compendium DO Not Attach Compendium, Do Not Delete/merge, 12/25/2021 11:04:44 12/26/19 22 12/25/2021 urina lysis , dipst ick Specific [place] 1.020 Not Available In-Off ice Order Internal Use Only DO Not Attach Compendium DO Not Attach Compendium, Do Not Delete/merge, 12/25/2021 11:04:44 12/26/19 22 12/25/2021 urina lysis , dipst ick Ketone Negati ve Not Available In-Office Order Internal Use Only DO Not Attach Compendium DO Not Attach Compendium, Do Not Delete/merge, 12/25/2021 11:04:44 12/26/19 22 12/25/2021 urina lysis , dipst ick Bilirubin Negati ve Not Available In-Office Order Internal Use Only DO Not Attach Compendium DO Not Attach Compendium, Do Not Delete/merge, 12/25/2021 11:04:44 12/26/19 22 12/25/2021 urina lysis , dipst ick Glucose Negati ve Not Available In-Office Order Internal Use Only DO Not Attach Compendium DO Not Attach Compendium, Do Not Delete/merge, 12/25/2021 11:04:44 10/09/20 15 10/09/2015 dexa PT NAME: KRYSTIN SMITH : 1959 PT SEX/AG E: F/55 PT ACCT NUMBER : [id number] PT MR#: [id number] ROOM/B ED: PT STATUS : REG CLI DATE OF EXAMIN ATION: ORDERI PHYSIC LARISSA: JONNIE COSME MAN M.D. ATTEND [facility] LARISSA: JONNIE COSME MAN , MAmanda. DICTAT [facility] LARISSA: KATINA MAGUIRE M.D. 014 EXAMIN ATION: DIGITA L MAMM SCREEN -SENG HISTOR Y: Screen ing mammog juan TECHNI QUE: Full field digita l cranio caudal and mediol ateral obliqu e views of both breast s were obtain ed. CAD analys is was submit marcelo and interp reted. COMPAR SUKHDEEP: Prior mammog viki dating back to 9 BREAST PARENC HYMAL COMPOS ITION: There are scatte red areas of fibrog landul ar densit y. FINDIN GS: Postbi opsy change s are seen in the breast . Scatte red benign -appea ring calcif icatio ns are presen t. There is no eviden ce of suspic ious mass, calcif icatio n, or maría ectura l distor tion to sugges t malign madison. There has been no signif icant interv al change . IMPRES JESSE: 1. No mammog raphic eviden ce of malign madison. Recomm end routin e screen ing mammog deuce in one year. BI-RAD S Catego ry 2: Benign findin g(s) __ Review ed, dictat ed, and finali zed at Locati on A. __ Electr onical ly signed by: Dr. KATINA Pierre Date: Time: 06:02 KATINA MAGUIRE M.D.__ ___ [facility] [address] [place] [id number] [email or web address] [facility] (Imaging) [address] [facility] [address] [place] [address], [phone], 10/16/2015 09:25:28 10/09/20 15 10/08/2015 mammo gram, scree angle No observ ation record ed. [email or web address] [facility] (Lab) [address] [place] [address] [place] [address], [phone], 10/11/2015 11:12:54 09/30/20 16 11/24/2007 MAMMO , scree angle, bilat eral, w/ CAD No observ ation record ed. [email or web address] Not Available 2015 12:21:51 10/17/20 16 10/17/2016 mamsb w PT NAME: KRYSTIN SMITH : 1959 PT SEX/AG E: F/56 PT ACCT NUMBER : [id number] PT MR#: [id number] [facility]4 ROOM/B ED: PT STATUS : REG CLI DATE OF EXAMIN ATION: ORDERI PHYSIC LARISSA: JONNIE DE LOS SANTOS Ynes ATTEND ING PHYSIC LARISSA: JONNIE DE LOS SANTOS , Ynes DICTAT ING PHYSIC LARISSA: KATINA MAGUIRE M.D. 019 ====== ====== ====== ====== ====== ====== ====== ====== ====== ====== ===== Bone Densit y Report ====== ====== ====== ====== ====== ====== ====== ====== ====== ====== ===== Name: SARAH PABLO Canas Navneet t ID: [id number] Age: 56 Sex: Female Ethnic ity: White Date of : 1959 ------ ------ ------ ------ ------ ------ ------ ------ ------ ------ ----- Indica tion: harsh harper; height loss; Referr [facility] er: BA DE LOS SANTOS , JONNIE Hmamer Study: Bone densit ometry was perfor med. Exam Date: er 2015 Access ion number : [id number] [id number] IX Bone Densit y: ------ ------ ------ ------ ------ ------ ------ ------ ------ ------ ----- Region BMD T-scor e Z-scor e Darren townsend on ------ ------ ------ ------ ------ ------ ------ ------ ------ ------ ----- AP Spine (L1-L4 ) 1.279 2.1 3.4 Normal Femora l Neck (Left) 0.860 0.1 1.3 Normal Total Hip (Left) 1.055 0.9 1.8 Normal Femora l Neck (Right ) 0.904 0.5 1.7 Normal Total Hip (Right ) 1.126 1.5 2.4 Normal Total Hip Mean 1.091 1.2 2.1 Normal ------ ------ ------ ------ ------ ------ ------ ------ ------ ------ ----- [facility] Organi brigid lizarraga ia for BMD impres jesse delarosa as: Normal (T-sco re at or above -1.0), Osteop enia (T-sco re betwee n -1.0 and -2.5), or Osteop orosis (T-sco re at or below -2.5). 10-dimas Vegau re Risk: ------ ------ ------ ------ ------ ------ ------ ------ ------ ------ ----- FRAX not report ed kishor e: All T-scor es for Spine Total, Hip Total, Femora l Neck at or above -1.0 ------ ------ ------ ------ ------ ------ ------ ------ ------ ------ ----- Clinic meredith Hernandez ed by Navneet watson: ------ ------ ------ ------ ------ ------ ------ ------ ------ ------ ----- Navneet moyer height was 64.0 Menopa use Age: 54 Drinks caffei curtis lynch Onset of menses at age 17 Number of childr en 3 Missed period for more than 6 months in a row ------ ------ ------ ------ ------ ------ ------ ------ ------ ------ ----- Impres jesse: The navneet watson has normal bone mass. Discus jsese: BONE DENSIT Y IS ABOVE THE MINIMU M DESIRA BLE LEVEL AT ALL [facility] SITES TESTED . This navneet watson's bone minera l densit y is above the minimu m desira ble level (T-sco re -1.0 or better ) at all sites measur ed. The navneet watson should follow a health ful lifest yle (good nutrit ion with adequa te calciu m and vitami n D, and approp riate weight -beari ng exerci se). Follow -Up: Consid er repeat ing this study in 5 years or sooner if there is some new clinic al indica tion. Review ed, dictat ed and finali [facility]ed [facility] KATINA MAGUIRE M.D.__ ___ < > [facility] [address] [place] [address] [facility] [address], [place], [address], 10/12/2018 18:05:43 10/17/20 16 10/17/2016 nabeel shipley PT NAME: KRYSTIN SMITH : 1959 PT SEX/AG E: F/56 PT ACCT NUMBER : [id number] PT MR#: [id number] ROOM/B ED: PT STATUS : REG CLI DATE OF EXAMIN ATION: ORDERI PHYSIC LARISSA: JONNIE COSME MAN M.Dayami ATTEND ING PHYSIC LARISSA: JONNIE COSME MAN , MJack DICTAT [facility] PHYSIC LARISSA: KATINA MAGUIRE M.D. 020 EXAMIN ATION: SANTOS SCREEN SENG W/CAD HISTOR Y: Screen ing mammog juan TECHNI QUE: Full field digita l cranio caudal and mediol ateral obliqu e views of both breast s were obtain ed. CAD analys is was submit marcelo and interp reted. COMPAR SUKHDEEP: Prior mammog viki dating back to 9 BREAST PARENC HYMAL COMPOS ITION: The breast s are almost entire ly fatty. FINDIN GS: Asymme try in the right breast on the cranio caudal view at the outer fibrog landul ar margin has a simila r appear ance to the 2008 compar sukhdeep. There is a stable left breast mass with adjace nt biopsy marker . There is no eviden ce of suspic ious mass, calcif icatio n, or maría ectura l distor tion to sugges t malign madison. There has been no suspic ious interv al change . IMPRES JESSE: 1. No mammog raphic eviden ce of malign madison. Recomm end routin e screen ing mammog deuce in one year. BI-RAD S Catego ry 2: Benign findin g(s) __ Review ed, dictat ed, and finali zed at Locati on A. __ Electr onical ly signed by: Dr. KATINA Pierre Date: Time: 16:54 KATINA MAGUIRE M.D.__ ___ [facility] [address] [facility] [address] [place] [address] [facility] (Imaging) [address], [place], [address], 10/12/2018 18:05:43 10/17/20 16 10/17/2016 MAMMO ian, bilat eral No observ ation record ed. [facility] [address], [place], [address], 10/12/2018 18:05:43 10/21/20 16 bone densi ty No observ ation record ed. [facility] [address], [place], [address], 10/12/2018 18:05:43 10/14/20 18 10/14/2018 MAMMO ian, bilat eral No observ ation record ed. [email or web address] [address], [place], [address], 10/25/2018 13:56:30 Result Notes None recorded. Problems Name Problem SNOMED Code Status Onset Date Resolution Date Notes Provider Name and Address Organization Details Recorded Time Menopausal syndrome 237650040 Active Jonnie headley, [facility] 6 13:06:43 Problem Notes None recorded. Procedures Surgical History Date Name Laterality Status Provider Name and Address Organization Details Recorded Time 2 Date of Last Pap Smear completed Sepideh Alcala MA [facility] 12/25/2021 11:18:12 5 Most Recent Mammogram completed Shelly Morris MA [facility] 10/01/2016 12:37:06 0 Breast Surgery completed Love Grant MA [facility] 09/05/2015 11:41:16 0 Orthopedic Surgery completed Love Grant MA [facility] 09/05/2015 11:41:37 Imaging Results Imaging Date Name Status LastModified by Organiz ation Details LastModified Time 10/09/2015 dexa completed [email or web address] [place], [place] [address]i mary (Imaging) [address] [place] [address], [phone], 10/16/2015 09:25:28 10/08/2015 mammogram, screening completed [address] (Lab) [address] [place] [address], [phone], 10/11/2015 11:12:54 11/24/2007 MAMMO, screening, bilateral, w/ CAD completed [email or web address] Information not available 09/30/2016 12:21:51 10/17/2016 [facility] [address], [address], 10/12/2018 18:05:43 10/17/2016 [facility] [address], [address], 10/12/2018 18:05:43 10/17/2016 MAMMO, screening, bilateral completed [facility] [address], [place], [address], 10/12/2018 18:05:43 10/21/2016 bone density completed [facility] [address], [place], [address], 10/12/2018 18:05:43 10/14/2018 MAMMO, screening, bilateral completed [email or web address] [address], [place], [address], 10/25/2018 13:56:30 Procedure Notes None recorded. Medical Equipment None Reported. Allergies No known drug allergies Medications Name Sig Start Date Stop Date Status Note LastModified by Organization Details LastModified Time multivitamin tablet Take 1 tablet every day by oral route. 12/25 completed Not Available Not Available Not Available cyclobenzapr ine 10 mg tablet 10/12 completed Not Available Not Available Not Available atorvastatin 40 mg tablet 12/25 completed Not Available Not Available Not Available atorvastatin 80 mg tablet active Not Available Not Available Not Available paroxetine 10 mg tablet TAKE 1 TABLET BY MOUTH EVERY DAY active Not Available Not Available No t Available atorvastatin 20 mg tablet 10/12 completed Not Available Not Available Not Available valacyclovir 1 gram tablet active Not Available Not Available Not Available estradiol-no rethindrone acet 1 mg-0.5 mg tablet Take 1 tablet every day by oral route. 10/12 completed Not Available Not Available Not Available pantoprazole 40 mg tablet,delay ed release active Not Available Not Available N ot Available estradiol 0.5 mg tablet Take 1 tablet every day by oral route. 10/12 completed Not Available Not Available Not Available epinephrine 0.3 mg/0.3 mL injection, auto-injecto r active Not Available Not Available Not Available methylpredni solone 4 mg tablets in a dose pack 10/12 completed Not Available Not Available Not Available metformin ER 500 mg tablet,exten ded release 24 hr active Not Available Not Available Not Available Adriana-BE 0.35 mg tablet Take 1 tablet every day by oral route. 10/12 completed Not Available Not Available Not Available ezetimibe 10 mg tablet active Not Available Not Available No t Available calcium 600 mg (as carbonate)-v itamin D3 10 mcg (400 unit) tablet TAKE 1 TABLET BY MOUTH TWICE DAILY 2019 active Not Available Not Available Not Avai lable calcium 600 mg (as carbonate)-v itamin D3 20 mcg (800 unit) tablet Take 1 tablet twice a day by oral route. 12/25 completed Not Available Not Available Not Available Brisdelle 7.5 mg capsule Take 1 capsule every day by oral route. 10/12 completed Not Available Not Available Not Available Fluvirin 45 mcg (15 mcg x 3)/0.5 mL intramuscula r suspension 10/12 completed Not Available Not Available Not Available Fluzone Quad (PF) 60 mcg(15 mcgx4)/0.5 mL intramuscula r syringe 10/12 completed Not Available Not Available Not Available Vitals Date Recorded Body height Body mass index (BMI) Body weight Systolic blood pressure Diastolic blood pressure Provider Name and Address Organization Details Last Updated DateTime 10/12/2018 162.56 cm 25.9 kg/m2 83987.45 g 124 mm[Hg] 70 mm[Hg] Amber Perez MA [facility] 8 15:06:31 Date Recorded Body height Body mass index (BMI) Body weight Systolic blood pressure Diastolic blood pressure Provider Name and Address Organization Details Last Updated DateTime 12/25/2021 162.56 cm 25.6 kg/m2 86406.26 g 130 mm[Hg] 70 mm[Hg] Sepideh Alcala MA [facility] 2 11:22:11 Date Recorded Body height Body mass index (BMI) Body weight Systolic blood pressure Diastolic blood pressure Provider Name and Address Organization Details Last Updated DateTime 09/05/2015 162.56 cm 24.9 kg/m2 48165.89 365 g 118 mm[Hg] 78 mm[Hg] Love Grant MA [facility] 5 11:52:41 Date Recorded Body height Body weight Body mass index (BMI) Systolic blood pressure Diastolic blood pressure Provider Name and Address Organization Details Last Updated DateTime 10/01/2016 162.56 cm 99044.67 g 25.4 kg/m2 130 mm[Hg] 68 mm[Hg] Shelly Morris [place] - [facility] 6 12:45:27 Social History Question Answer Notes LastModified by Organizat ion Details LastModified Time Tobacco Smoking Status Never Smoker Love WILBER Grant null, [place] - [facility] 09/05/2015 11:42:45 Do You Have An Advance Directive? Yes Information not available 09/05/2015 What Is Your Level Of Alcohol Consumption? Moderate Information not available 09/05/2015 Is Blood Transfusion Acceptable In An Emergency? Yes Information not available 09/05/2015 What Is Your Level Of Caffeine Consumption? Moderate Information not available 09/05/2015 How Much Tobacco Do You Chew? None Information not available 09/05/2015 Are You Currently Employed? Yes Information not available 09/05/2015 What Type Of Diet Are You Following? REGULAR Information not available 09/05/2015 Education 12 Information no t available 09/05/2015 What Is Your Occupation? [employer] Information not available 09/05/2015 Live Alone Or With Others? With Others Information not available 09/05/2015 What Was The Date Of Your Most Recent Tobacco Screening? 12/25/2021 Information not available 12/25/2021 How Many Children Do You Have? 2 Information not available 09/05/2015 Performs Monthly Self-breast Exam? Yes Information no t available 09/05/2015 Do You Use Protection During Sex? No Information not available 09/05/2015 What Is Your Relationship Status? Information not available 09/05/2015 Seat Belts Used Routinely Yes Information not available 09/05/2015 Are You Sexually Active? No Information not available 09/05/2015 Do You Have Smoke And Carbon Monoxide Detectors In Your Home? Yes Information not available 12/25/2021 General Stress Level Low [email or web address] Information not available 10/01/2016 Do You Use Any Illicit Or Recreational Drugs? No Information not available 12/25/2021 Do You Use Sunscreen Routinely? Yes [email or web address] Information not available 09/05/2015 Sex: Unknown Functional Status Question Answer Note LastModified by Organizat ion Details LastModified Time What is your exercise level? Occasional [email or web address] Information not available 09/05/2015 Mental Status None recorded. Family History Relationship Description Onset Age of this Age Resolved Age Notes LastModified by Organization Details LastModified Time Mother Carcinoma of lung COPD Not available 09/05 11:42:23 Medical History Condition Response Coronary Artery Disease N Blood Diseases N Kidney Cyst N Hyperthyroidism N Blood disorders N MRSA N Blood Transfusion N Emphysema N Blood Clots N COPD N Depression N Pneumonia N Peripheral Arterial Disease N Premature N Edema N TIA N Headaches/Migraines N Anxiety Disorder N Obesity N Infertility N Polyps N Acid Reflux (GERD) N Hematuria N Stroke N Neck Injury N Polio N Hospital Admission other than N Neurologic Disorder N Other Sleep Disorders N Rheumatoid Arthritis N Fibromyalgia N Abdominal Aortic Aneurysm Repair N Kidney Disease N Heart Conditions N Heart Disease/Heart Problems N Hospitalizations N Brain Tumors N Acne N Eating Disorder N Skin Problems N Constipation N Meningitis N Tuberculosis N Cerebral Palsy N Myocardial Infarction N Asthma N Substance Abuse N Peripheral Vascular Disease N Vertigo N Sleep Disorder N Cirrhosis N Pulmonary Embolism N Chicken Pox N Flomax Use Past or Present N Hematologic Disease N Anxiety/Depression N Thyroid Disease N Colon Cancer N Glaucoma N Lung Disease N Developmental or Behavioral Disorders N Bipolar N Pacemaker N Diverticulitis/Diverticulosis N Anesthesia Complications N Orthopedic Problems N Orthotics N Head Injury/Concussion N Congenital Anomalies N Dubois Bite N Chronic Kidney Disease N Endometriosis N Liver Disease N Dialysis N Schizophrenia N Speech Delay N Chronic Obstructive Pulmonary Disease N Parkinson's Disease N Thyroid Problems N Developmental Delay N GI Problems N Anemia N Immune System Disorder N Multiple Sclerosis N Colon Polyps N Heart Attack (AL) N Diabetes N Cardiomyopathy N Blood Transfusions N Heart Problems/Murmur N Eye Trauma N Congestive Heart Failure (CHF) N Valvular Heart Disease N Hyperlipidemia N Double Vision N Abuse/Domestic Violence N Hepatitis B N Lupus N Epilepsy/Seizures N Reflux/GERD N Aneurysm N Bronchitis N Heart Disease N Hypertension N Pre-Eclampsia N Heart Failure N Other N Gout N High Blood Pressure N Atrial Fibrillation N Kidney Stones N Head Trauma/Injury N Congenital Heart Disease N Spine Problems N Gastrointestinal Disease N Lung Mass N Sinusitis N Obstructive Sleep Apnea N Muscle, Joint, or Bone Problems N Autoimmune disease N Vision or Eye Problems N Arthritis N Blood Clot N Cancer N Seasonal allergies N Leg or Foot Ulcers N Raynaud's Disease N Aortic Aneurysm N Arrhythmia N Headaches N Heart Problems N Ambloypia N Ear or Hearing Problems N Hyperparathyroidism N Migraines N Artificial Joints N Kidney or Bladder Problems N NSAID Use N Encephalitis N PTSD N Ulcers N Prostate Hypertrophy N Bleeding Disorder N AIDS/HIV N Urinary Tract Infection N Back Problems N Allergies N Atrial Flutter N GERD/Reflux N Hepatitis N Autism Spectrum Disorder (ASD) N Breast Cancer N Hernia N Hypothyroidism N Breast Problem N Genitourinary Disease N Deep Vein Thrombosis N Varicose Veins N Cystic Fibrosis N Hearing Loss N Developmental Problems N Carotid Disease N Vitamin D Deficiency N ADHD N Bladder or Kidney Problems N High Cholesterol N Meniers N Valvular Abnormalities N Psychiatric/Mental Health Condition N Organ Transplant N Foot Deformity N Allergies/Hayfever N Dyslipidemia N Hyponatremia N Diabetic Eye Disease N Osteoporosis/Osteopenia N Back Pain N Proteinuria N Mental Illness N Neurological Problems N Ovarian Cancer N Bedwetting N Seizures/Epilepsy N Kidney Failure N Ocular trauma N Diverticulitis N Dementia N Sleep Apnea N Mental Problems N Warfarin Management N Osteoporosis N Gynecological History Statement/Question Response Abnormal Pap N STIs/STDs N HPV Vaccine N Most Recent Mammogram 10/07/2015 Age at Menarche 16 Current Control Method Menopause Age at First Child 22 If Post Menopausal, Age at Menopause 50 Sexually Active? N Menses Monthly N Date of Last Pap Smear 12/25/2021 Sexual Problems? N LMP Unknown Desired Control Method None Obstetrics History GPAL:G 3 P 3 0 0 2 Type Value Multiple Births 0 Full Term 3 Induced 0 Spontaneous 0 Premature 0 Living 2 Ectopics 0 Total 3 Immunizations Vaccine Type Date Status Note Provider Nam e and Address Organization Details Recorded Time Influenza, split virus, quadrivalent, preservative 8 completed Jonnie Aguirre [facility] [place] - SIF 10/12/2018 15:18:28 Past Encounters Encounter ID Performer Location Encounter Start Date Encounter Closed Date Diagnosis/Indication Diagnosis SNOMED-CT Code Diagnosis ICD10 Code Diagnosis Note [id number] Jonnie Powers (PLANT PRODUCTION MANAGER) [address] [place] [address] 09/05/2015 10:32:36 09/05/2015 12:41:50 Screening for malignant neoplasm of breast 514559353 Z12.39 Gynecologi c examination 73328506 Z01.437 [id number] Jonnie Timothy Powers (PLANT PRODUCTION MANAGER) [address] [place] [phone] 10/01/2016 11:22:49 10/02/2016 11:55:41 Screening mammography 21468727 Z12.31 Gynecologi c examination 19295428 Z01.419 Menopausal syndrome 1237 77615 N95.9 Screening for osteoporosis 130894845 Z13.063 [id number] Jonnie PettitTimothyvic Powers (PLANT PRODUCTION MANAGER) [address] [place] [phone] 10/12/2018 14:10:25 10/12/2018 17:25:27 Gynecologic examination 73319097 Z01.419 Z11.51 Screening mammography 24 846573 Z12.31 Menopausal syndrome 1237 61787 N95.9 [id number] NEHAL BISHOP (PLANT PRODUCTION MANAGER) [address] [place] [phone] 12/25/2021 10:54:51 12/27/2021 09:33:54 Gynecologic examination 85212770 Z01.419 Cervical cancer screening: Previous Pap 09/[address] cancer screening: Last MAMMO 10/14/2018 , BIRADS 2. Annual screening mammogram ordered. Discussed SBERoutine nuswab, treat as neededCoun seled regarding importance of physical activity, healthy diet and appropriat e calcium intake.RTC in 1yr Screening for malignant neoplasm of breast 892235622 Z12.31 Health Concerns Section Related Observation LastModified by Organization Detai ls LastModified Time None Recorded Concern Status LastModified by Organization Details LastModified Time None Recorded Advance Directives Directive Y: Payers Encounter Date Sequence Insurance Name Policy Number Policy Mina Covered Member ID Mina Member ID Guarantor Name 09/05/2015 1 [place] [id number] Castillo Smith [id number] Castillo Smith 10/01/2016 1 [facility] (PPO) [id number] Anabela Smith [id number] Castillo Smith 10/12/2018 1 [place] [id number] Anabela Smith [id number] Castillo Smith 12/25/2021 1 [facility] [place] [id number] Anabela Smith [id number] Castillo Smith Notes Date Note Type Note Provider Name and Address Organization Details Recorded Time 10/01/2016 text/html Annual Allergist/Immunologist Post-MenopausalRepo rted bypatient.Menopausa l Symptoms:no menopausal symptoms; normal vaginal lubrication Vaginal Bleeding:history of menopause having occurred; no history of post menopausal bleeding Urinary Symptoms:no hematuria; no incontinence; no nocturia; no urinary frequency Vulva:no genital lesion; no vulvar atrophy Vagina:normal vaginal discharge; no vaginal atrophy Breast:no breast lump; no nipple discharge; no breast pain Sexual Complaints:no sexual complaints Psychological Symptoms:no depression; no anxiety 56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 [employer] Jonnie LILLI Nguyen SICesar 10/01/2016 18:35:02 10/12/2018 text/html Annual Allergist/Immunologist Post-MenopausalRepo rted bypatient.Menopausa l Symptoms:no menopausal symptoms; normal vaginal lubrication Vaginal Bleeding:history of menopause having occurred; no history of post menopausal bleeding Urinary Symptoms:no hematuria; no incontinence; no nocturia; no urinary frequency Vulva:no genital lesion; no vulvar atrophy Vagina:normal vaginal discharge; no vaginal atrophy Breast:no breast lump; no nipple discharge; no breast pain Sexual Complaints:no sexual complaints Psychological Symptoms:no depression; no anxiety 56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 Hx of breast biopsy in the past with benign findings, she does not remember when the procedure was performed. Reports increased mood changes and hot flashes. Has been off the paroxetine and would like to go back on it. Otherwise doing well and has no concerns at this time. LILLI Weaver [facility] 10/12/2018 18:09:14 12/25/2021 text/html Annual GYNReport ed bypatient.History:n o gynecologic complaints; no change in interval history Urinary symptoms:No hematuria; No incontinence Vulva:No genital lesion Vagina:Normal vaginal discharge Breast:No breast pain; No breast lump; No nipple discharge Menopausal Symptoms:No menopausal symptoms; Has been taking Paroxetine 10mg daily for years for vasomotor menopause symptoms. Considering discontinuing as she has not had hot flashes in years. Psychological symptoms:No depression; No anxiety Preventive measures:Encourage self breast examination; Encourage regular exercise; Needs to schedule mammogramNotes:Himanshu es abnormal bleeding, fever/chills, nausea/vomiting, diarrhea, constipation, SOB, or chest pain. 61 yo female presents for annual well woman exam. No complaints or concerns. NEHAL BISHOP Attn: Accounting,[address] [facility], [place], [address], [facility] - [facility]IF 12/26/2021 14:32:14 OBGyn Episode Ob Episode Information Episode Created Date Number of Fetuses Patient Bloodtype Patient rh Status Prepregnancy Weight lbs Domestic Partner Domestic Partner Phone Father Name Lan Engineer Status 09/05/20 15 1 CLOSED Fetus Data First Name Last Name Admitted to NICU Weight (g) Sex Living Outcome Pediatric Complications Fetus ID Race Codes Race Delivery Type 2948.34 8 F Full Term [id number] Vaginal Yoni Calculation Initial Yoni Date Initial Exam Date Initial Exam Provider Initial Ultrasound Date Last Menstrual Period Date Ultra Sound Weeks Gestation 0 Eighteen To Twenty Week Yoni Update Ultra Sound Date Fundal Height At Umbil Quickening Date Ultra Sound Latest Weeks Gestation Final Yoni Confirmed By Final Yoni Confirmed Date Final Yoni Date Ultra Sound Latest Days Gestation 0 0 Menstrual History Last Menstrual Date Menses Monthly On Bcp Conception Prior Menses Frequency Hcg Plus Date Menarche Onset Age Delivery Information Delivery Date Delivery Type Labor Anesthesia Weeks Gestation Incision Type Labor Labor Length Hrs Delivered By Post Complications Tubal Sterilization Discharge Date Comments 6 [facility] idural 40 false [place] Discharge Information Feeding Method Contraceptive Method Maternal HG B and HCT Levels Ob Episode Information Episode Created Date Number of Fetuses Patient Bloodtype Patient rh Status Prepregnancy Weight lbs Domestic Partner Domestic Partner Phone Father Name Lan Engineer Status 09/05/20 15 1 CLOSED Fetus Data First Name Last Name Admitted to NICU Weight (g) Sex Living Outcome Pediatric Complications Fetus ID Race Codes Race Delivery Type 3316.89 15 F Full Term [id number] Unsucessf ul Yoni Calculation Initial Yoni Date Initial Exam Date Initial Exam Provider Initial Ultrasound Date Last Menstrual Period Date Ultra Sound Weeks Gestation 0 Eighteen To Twenty Week Yoni Update Ultra Sound Date Fundal Height At Umbil Quickening Date Ultra Sound Latest Weeks Gestation Final Yoni Confirmed By Final Yoni Confirmed Date Final Yoni Date Ultra Sound Latest Days Gestation 0 0 Menstrual History Last Menstrual Date Menses Monthly On Bcp Conception Prior Menses Frequency Hcg Plus Date Menarche Onset Age Delivery Information Delivery Date Delivery Type Labor Anesthesia Weeks Gestation Incision Type Labor Labor Length Hrs Delivered By Post Complications Tubal Sterilization Discharge Date Comments 3 [facility] idural 40 false Swati Discharge Information Feeding Method Contraceptive Method Maternal HG B and HCT Levels
== END 2024-12-21 13:23 | disposition home or self-care (01) ==
LOC: ANHIMG 13:27
PROVIDERS: PCP Internal Medicine; Visit Provider Internal Medicine
DX: Z12.31 Encounter for screening mammogram for malignant neoplasm of breast (principal)
CPT/HCPCS: 77063; 77067